=== PATIENT | male | born 1950 | race Caucasian/White ===

== ENCOUNTER 2024-01-30 19:51 | Inpatient (IN) | payer OTHER ==
[~2024-01-30] VITALS: Ht 172.7 cm; Wt 98.4 kg
[2024-01-30] MEDS: SODIUM CHLORIDE 0.9% 1,000 ML IV ONE (20:15)
[2024-01-30] MEDS ORDERED: PIPERACILLIN/TAZO 3.375G/50ML 50 ML IV ONE (20:15)
[2024-01-30] MEDS ORDERED: VANCOMYCIN 1G PREMIX 200 ML IV ONE (20:15)
[2024-01-30] MEDS: HALOPERIDOL LACTATE 5MG/ML VIAL IM ONE (22:00)
[2024-01-30 23:44] LABS: BASOPHILS % 0.3 % (0.0-2.0); EOSINOPHILS % 0.1 % (0.0-5.0); HEMATOCRIT. 40.7 % (42.0-52.0); LYMPHOCYTES % 8.6 % (20.0-50.0); MEAN CORPUSCULAR HEMOGLOBIN 26.3 pg (28.0-32.0); MEAN CORPUSCULAR HGB CONC 31.9 g/dL (31.0-37.0); MEAN CORPUSCULAR VOLUME 82.3 fL (80.0-94.0); MEAN PLATELET VOLUME 7.9 fl (7.4-10.4); PLATELET 484 x1000/uL (130-400); RED BLOOD CELL COUNT 4.94 mill/uL (4.7-6.1); RED CELL DISTRIBUTION WIDTH 17.5 % (11.6-14.6); WHITE BLOOD COUNT 22.2 x1000/uL (4.5-11.0)
[2024-01-30 23:54] LABS: CHLORIDE 104 mEq/L (98-107); POTASSIUM 3.4 mEq/L (3.5-5.1); SODIUM 143 mEq/L (136-145)
[2024-01-30 23:55] LABS: CALCIUM 9.1 mg/dL (8.7-10.4); CARBON DIOXIDE 30 mEq/L (21-32)
[2024-01-31] LABS: CREATININE 0.8 mg/dL (0.6-1.3); GLUCOSE 137 mg/dL (70-105); TROPONIN I HIGH SENSITIVITY 12 ng/L (3.0-53); UREA NITROGEN BLOOD 24 mg/dL (9-23)
[2024-01-31 00:01] LABS: ALANINE AMINOTRANSFERASE 38 IU/L (10-49)
[2024-01-31 00:02] LABS: ALBUMIN 3.4 g/dL (3.2-4.8); ASPARTATE AMINOTRANSFERASE 49 IU/L (<34); BILIRUBIN DIRECT 0.2 mg/dL (<=3.0); BILIRUBIN TOTAL 0.5 mg/dL (0.1-1.0); PROTEIN TOTAL 6.8 g/dL (6.0-8.3)
[2024-01-31] MEDS ORDERED: PIPERACILLIN/TAZO 3.375G/50ML 50 ML IV ONE (03:30)
[2024-01-31] MEDS ORDERED: DOCUSATE SODIUM 100MG CAPSULE PO PRN (03:45)
[2024-01-31] MEDS ORDERED: HYDRALAZINE 20MG/ML VIAL IV PRN (03:45)
[2024-01-31] MEDS ORDERED: MAGNESIUM/ALUMINUM HYDROXIDE/SIMETHICONE 30ML UDC PO PRN (03:45)
[2024-01-31] MEDS: PIPERACILLIN/TAZO 3.375G/50ML 50 ML IV NR (03:48)
[2024-01-31] MEDS ORDERED: VANCOMYCIN 1GM PMX (XELLIA) 200 ML IV NR (04:00)
[2024-01-31 06:23] LABS: CHLORIDE 106 mEq/L (98-107); POTASSIUM 3.3 mEq/L (3.5-5.1); SODIUM 145 mEq/L (136-145)
[2024-01-31 06:24] LABS: CALCIUM 8.8 mg/dL (8.7-10.4); CARBON DIOXIDE 31 mEq/L (21-32)
[2024-01-31 06:28] LABS: BASOPHILS % 0.1 % (0.0-2.0); HEMATOCRIT. 37.2 % (42.0-52.0); LYMPHOCYTES % 9.1 % (20.0-50.0); MEAN CORPUSCULAR HEMOGLOBIN 26.8 pg (28.0-32.0); MEAN CORPUSCULAR HGB CONC 32.4 g/dL (31.0-37.0); MEAN CORPUSCULAR VOLUME 82.6 fL (80.0-94.0); MEAN PLATELET VOLUME 8.1 fl (7.4-10.4); MONOCYTES % 4.3 % (2.0-8.0); NEUTROPHILS % 86.5 % (40.0-76.0); PLATELET 504 x1000/uL (130-400); RED CELL DISTRIBUTION WIDTH 17.3 % (11.6-14.6); WHITE BLOOD COUNT 25.5 x1000/uL (4.5-11.0)
[2024-01-31 06:29] LABS: CREATININE 0.7 mg/dL (0.6-1.3); GLUCOSE 143 mg/dL (70-105); TRIGLYCERIDE 105 mg/dL (0-150); UREA NITROGEN BLOOD 23 mg/dL (9-23)
[2024-01-31 06:30] LABS: LDL CHOLESTEROL 88 mg/dL (5-100)
[2024-01-31 06:31] LABS: CHOLESTEROL 127 mg/dL (<200); HDL CHOLESTEROL 22 mg/dL (>55); PHOSPHORUS 3.2 mg/dL (2.5-4.9)
[2024-01-31 06:32] LABS: INR 1.1; PARTIAL THROMBOPLASTIN TIME 29.1 sec (23.4-31.0); PROTHROMBIN TIME 12.6 sec (9.6-11.0)
[2024-01-31 06:33] LABS: T4 FREE 1.42 ng/dL (0.89-1.76)
[2024-01-31 06:34] LABS: THYROID STIMULATING HORMONE 3.05 uIU/mL (0.55-4.78)
[2024-01-31] MEDS: VANCOMYCIN 1.5GM PMX (XELLIA) 300 ML IV SCH (07:03)
[2024-01-31] MEDS: DEXT 5%/0.9% NACL 1,000 ML IV SCH (09:15)
[2024-01-31] MEDS: PANTOPRAZOLE SODIUM 40 MG/VIAL IV SCH (09:36)
[2024-01-31] MEDS: KCL 20MEQ/100ML PREMIX 100 ML IV NR (14:07)
[2024-01-31] MEDS: PIPERACILLIN/TAZO 3.375G/50ML 50 ML IV SCH (15:51)
[2024-01-31 20:00] VITALS: BP 159/87; PULSE 93; RESP 20; TEMP 36.55848; O2SAT 94
[2024-01-31 20:17] LABS: HEMATOCRIT 39.3 % (42.0-52.0); HEMOGLOBIN 12.2 g/dL (14.0-18.0); MEAN CORPUSCULAR HEMOGLOBIN 25.8 pg (28.0-32.0); MEAN CORPUSCULAR HGB CONC 31.1 g/dL (31.0-37.0); MEAN CORPUSCULAR VOLUME 83.1 fL (80.0-94.0); PLATELET 480 x1000/uL (130-400); RED BLOOD CELL COUNT 4.73 mill/uL (4.7-6.1); RED CELL DISTRIBUTION WIDTH 17.4 % (11.6-14.6); WHITE BLOOD COUNT 23.1 x1000/uL (4.5-11.0)
[2024-01-31 20:23] LABS: CARBON DIOXIDE 27 mEq/L (21-32); CHLORIDE 107 mEq/L (98-107); POTASSIUM 3.4 mEq/L (3.5-5.1); SODIUM 143 mEq/L (136-145)
[2024-01-31 20:24] LABS: CALCIUM 8.9 mg/dL (8.7-10.4)
[2024-01-31 20:29] LABS: CREATININE 0.7 mg/dL (0.6-1.3); GLUCOSE 143 mg/dL (70-105)
[2024-01-31 20:30] LABS: UREA NITROGEN BLOOD 22 mg/dL (9-23)
[2024-01-31 20:32] LABS: PHOSPHORUS 3.2 mg/dL (2.5-4.9)
[2024-01-31 20:47] VITALS: BP 160/82; PULSE 92; RESP 21; TEMP 36.14
[2024-01-31] MEDS: VANCOMYCIN 750MG PMX (XELLIA) 150 ML IV SCH (21:55)
[2024-01-31 22:00] VITALS: BP 151/63; PULSE 94; RESP 24; O2SAT 91
[2024-01-31 23:50] VITALS: BP 141/64; PULSE 89; RESP 22; TEMP 37.16964; O2SAT 94
[2024-02-01] VITALS (12 sets, daily range): BP systolic 131–154; BP diastolic 60–92; PULSE 81–96; RESP 18–23; TEMP 36.61404–37.11408; O2SAT 92–99
[2024-02-01] MEDS: IPRATROPIUM/ALBUTEROL 0.5-3(2.5)MG/3ML NEB HHN PRN (02:56)
[2024-02-01 15:11] LABS: CLARITY URINE CLEAR (CLEAR); COLOR URINE DARK YELLOW (YELLOW); GLUCOSE URINE NEGATIVE (NEGATIVE); KETONES URINE TRACE (NEGATIVE); LEUKOCYTE ESTERASE URINE NEGATIVE (NEGATIVE); NITRITE URINE NEGATIVE (NEGATIVE); OCCULT BLOOD URINE NEGATIVE (NEGATIVE); PH URINE 5.5 (4.5-8.0); PROTEIN URINE 1+ (NEGATIVE); SPECIFIC GRAVITY URINE 1.036 (1.005-1.030); UROBILINOGEN URINE 0.2 E.U./dL (0.2-1.0)
[2024-02-01 16:15] LABS: BACTERIA URINE 2+; CALCIUM OXALATE CRYSTALS URINE 1+ /lpf; RBC URINE 0-2 /hpf (0-2); SQUAMOUS EPITHELIAL CELL URINE FEW /lpf (RARE/1+); WBC URINE 0-2 /hpf (0-2)
[2024-02-01] MEDS: SODIUM HYPOCHLORITE 0.125% 473ML SOLUTION TOP SCH (21:20)
[2024-02-02] VITALS (12 sets, daily range): BP systolic 122–159; BP diastolic 63–81; PULSE 81–101; RESP 11–23; TEMP 34.89168–37.00296; O2SAT 90–97
[2024-02-02 05:10] LABS: HEMATOCRIT 36.8 % (42.0-52.0); HEMOGLOBIN 11.5 g/dL (14.0-18.0); MEAN CORPUSCULAR HEMOGLOBIN 26.3 pg (28.0-32.0); MEAN CORPUSCULAR HGB CONC 31.3 g/dL (31.0-37.0); MEAN CORPUSCULAR VOLUME 83.8 fL (80.0-94.0); PLATELET 464 x1000/uL (130-400); RED BLOOD CELL COUNT 4.39 mill/uL (4.7-6.1); RED CELL DISTRIBUTION WIDTH 17.7 % (11.6-14.6); WHITE BLOOD COUNT 19.3 x1000/uL (4.5-11.0)
[2024-02-02 05:21] LABS: CARBON DIOXIDE 28 mEq/L (21-32); CHLORIDE 111 mEq/L (98-107); POTASSIUM 3.1 mEq/L (3.5-5.1); SODIUM 147 mEq/L (136-145)
[2024-02-02 05:22] LABS: CALCIUM 8.8 mg/dL (8.7-10.4)
[2024-02-02 05:27] LABS: CREATININE 0.6 mg/dL (0.6-1.3); GLUCOSE 145 mg/dL (70-105); UREA NITROGEN BLOOD 19 mg/dL (9-23)
[2024-02-02 05:29] LABS: PHOSPHORUS 2.6 mg/dL (2.5-4.9)
[2024-02-02] MEDS: SODIUM CHLORIDE 0.9% 1,000 ML IV SCH (11:11)
[2024-02-02] MEDS: TAMSULOSIN HCL 0.4MG SR CAPSULE PO SCH (11:12)
[2024-02-02] MEDS: ASPIRIN 81MG EC TABLET PO SCH (17:32)
[2024-02-02] MEDS: ENOXAPARIN 40MG/0.4ML SYR SUBCUT SCH (17:32)
[2024-02-03] VITALS (12 sets, daily range): BP systolic 95–162; BP diastolic 44–75; PULSE 86–105; RESP 16–25; TEMP 36.28068–37.61412; O2SAT 92–94
[2024-02-03] MEDS: VANCOMYCIN 1GM PMX (XELLIA) 200 ML IV SCH (05:10)
[2024-02-03] MEDS: FAMOTIDINE 20MG/2ML VIAL IV SCH (08:12)
[2024-02-03] MEDS: LOSARTAN 25 MG TABLET PO SCH (09:00)
[2024-02-03 14:11] LABS: HEMATOCRIT 38.8 % (42.0-52.0); HEMOGLOBIN 11.6 g/dL (14.0-18.0); MEAN CORPUSCULAR HEMOGLOBIN 25.5 pg (28.0-32.0); MEAN CORPUSCULAR HGB CONC 29.9 g/dL (31.0-37.0); MEAN CORPUSCULAR VOLUME 85.2 fL (80.0-94.0); PLATELET 459 x1000/uL (130-400); RED BLOOD CELL COUNT 4.55 mill/uL (4.7-6.1); WHITE BLOOD COUNT 17.7 x1000/uL (4.5-11.0)
[2024-02-03 14:46] LABS: CHLORIDE 113 mEq/L (98-107); POTASSIUM 2.9 mEq/L (3.5-5.1); SODIUM 147 mEq/L (136-145)
[2024-02-03 14:47] LABS: CALCIUM 8.8 mg/dL (8.7-10.4); CARBON DIOXIDE 27 mEq/L (21-32)
[2024-02-03 14:52] LABS: CREATININE 0.5 mg/dL (0.6-1.3); GLUCOSE 190 mg/dL (70-105); UREA NITROGEN BLOOD 14 mg/dL (9-23)
[2024-02-03] MEDS: ACETAMINOPHEN 325MG TABLET PO PRN (15:09)
[2024-02-03] MEDS: SODIUM CHLORIDE 0.45% 1,000 ML IV SCH (19:12)
[2024-02-03] MEDS: KCL 20MEQ/100ML PREMIX 100 ML IV SCH (23:06)
[2024-02-04] VITALS (12 sets, daily range): BP systolic 115–153; BP diastolic 59–83; PULSE 86–98; RESP 13–25; TEMP 36.3918–37.00296; O2SAT 92–96
[2024-02-04 06:06] LABS: CHLORIDE 111 mEq/L (98-107); POTASSIUM 2.9 mEq/L (3.5-5.1); SODIUM 147 mEq/L (136-145)
[2024-02-04 06:09] LABS: CALCIUM 8.7 mg/dL (8.7-10.4); CARBON DIOXIDE 28 mEq/L (21-32)
[2024-02-04 06:14] LABS: CREATININE 0.5 mg/dL (0.6-1.3); GLUCOSE 130 mg/dL (70-105); UREA NITROGEN BLOOD 13 mg/dL (9-23)
[2024-02-04 06:16] LABS: ALANINE AMINOTRANSFERASE 53 IU/L (10-49); ALBUMIN 2.8 g/dL (3.2-4.8); ASPARTATE AMINOTRANSFERASE 28 IU/L (<34)
[2024-02-04 06:17] LABS: BILIRUBIN TOTAL 0.5 mg/dL (0.1-1.0); PROTEIN TOTAL 5.9 g/dL (6.0-8.3)
[2024-02-04 06:25] LABS: PHOSPHORUS 2.6 mg/dL (2.5-4.9)
[2024-02-04 06:54] LABS: HEMATOCRIT 35.1 % (42.0-52.0); HEMOGLOBIN 10.9 g/dL (14.0-18.0); MEAN CORPUSCULAR HEMOGLOBIN 26.2 pg (28.0-32.0); MEAN CORPUSCULAR HGB CONC 31.2 g/dL (31.0-37.0); MEAN CORPUSCULAR VOLUME 84.1 fL (80.0-94.0); PLATELET 454 x1000/uL (130-400); RED BLOOD CELL COUNT 4.17 mill/uL (4.7-6.1); RED CELL DISTRIBUTION WIDTH 17.7 % (11.6-14.6); WHITE BLOOD COUNT 14.7 x1000/uL (4.5-11.0)
[2024-02-04] MEDS: POTASSIUM CHLORIDE 20MEQ TABLET SR PO NR (10:30)
[2024-02-04] MEDS: KETOROLAC 30MG/ML VIAL IV PRN (18:40)
[2024-02-05] VITALS (13 sets, daily range): BP systolic 106–147; BP diastolic 50–79; PULSE 89–104; RESP 12–26; TEMP 36.61404–37.11408; O2SAT 92–98
[2024-02-05 07:24] LABS: EOSINOPHILS % 0.5 % (0.0-5.0); HEMATOCRIT. 33.4 % (42.0-52.0); HEMOGLOBIN. 10.4 g/dL (14.0-18.0); LYMPHOCYTES % 9.7 % (20.0-50.0); MEAN CORPUSCULAR HEMOGLOBIN 25.7 pg (28.0-32.0); MEAN CORPUSCULAR VOLUME 82.9 fL (80.0-94.0); MEAN PLATELET VOLUME 8.5 fl (7.4-10.4); NEUTROPHILS % 85.8 % (40.0-76.0); PLATELET 446 x1000/uL (130-400); RED BLOOD CELL COUNT 4.03 mill/uL (4.7-6.1); RED CELL DISTRIBUTION WIDTH 17.8 % (11.6-14.6); WHITE BLOOD COUNT 17.9 x1000/uL (4.5-11.0)
[2024-02-05 07:32] LABS: CHLORIDE 111 mEq/L (98-107); SODIUM 146 mEq/L (136-145)
[2024-02-05 07:33] LABS: CARBON DIOXIDE 27 mEq/L (21-32)
[2024-02-05 07:34] LABS: CALCIUM 8.3 mg/dL (8.7-10.4)
[2024-02-05 07:38] LABS: CREATININE 0.5 mg/dL (0.6-1.3); GLUCOSE 126 mg/dL (70-105)
[2024-02-05 07:39] LABS: UREA NITROGEN BLOOD 16 mg/dL (9-23)
[2024-02-05 07:41] LABS: PHOSPHORUS 2.5 mg/dL (2.5-4.9)
[2024-02-05] MEDS ORDERED: LIDOCAINE HCL/EPINEPHRINE 1%-EPI 1:100,000 50ML VIAL INFIL NR (09:30)
[2024-02-05] MEDS ORDERED: LIDOCAINE HCL/EPINEPHRINE 1%-EPI 1:100,000 20ML VIAL INFIL NR (09:45)
[2024-02-05] MEDS ORDERED: SILVER NITRATE APPLICATOR STICK TOP NR (10:00)
[2024-02-05] MEDS ORDERED: CEFEPIME 2GM IN DEXT 5% 100ML IV SCH (15:00)
[2024-02-05] MEDS: CEFEPIME 2GM/100ML 100 ML IV SCH (17:24)
[2024-02-06] VITALS (7 sets, daily range): BP systolic 108–151; BP diastolic 51–89; PULSE 82–101; RESP 11–26; TEMP 36.16956–38.0586; O2SAT 94–96
[2024-02-06 03:38] LABS: BASOPHILS % 0.5 % (0.0-2.0); CARBON DIOXIDE 28 mEq/L (21-32); CHLORIDE 108 mEq/L (98-107); EOSINOPHILS % 1.9 % (0.0-5.0); HEMATOCRIT. 31.3 % (42.0-52.0); HEMOGLOBIN. 9.8 g/dL (14.0-18.0); LYMPHOCYTES % 14.6 % (20.0-50.0); MEAN CORPUSCULAR HEMOGLOBIN 25.6 pg (28.0-32.0); MEAN CORPUSCULAR HGB CONC 31.3 g/dL (31.0-37.0); MEAN CORPUSCULAR VOLUME 81.9 fL (80.0-94.0); MEAN PLATELET VOLUME 8.2 fl (7.4-10.4); PLATELET 432 x1000/uL (130-400); RED BLOOD CELL COUNT 3.82 mill/uL (4.7-6.1); RED CELL DISTRIBUTION WIDTH 17.3 % (11.6-14.6); SODIUM 141 mEq/L (136-145); WHITE BLOOD COUNT 12.7 x1000/uL (4.5-11.0)
[2024-02-06 03:44] LABS: CREATININE 0.5 mg/dL (0.6-1.3); GLUCOSE 130 mg/dL (70-105); UREA NITROGEN BLOOD 17 mg/dL (9-23)
[2024-02-06 03:46] LABS: PHOSPHORUS 2.3 mg/dL (2.5-4.9)
[2024-02-06] MEDS: ASPIRIN 81MG TABLET PO SCH (09:00)
[2024-02-06] MEDS: POTASSIUM PHOSPHATE 20 MMOL in DEXT 5% WATER 243.3333 ML IV NR (14:00)
[2024-02-06] MEDS: VANCOMYCIN 750MG/150ML (BAXTER) IV SCH (18:00)
[2024-02-06] MEDS ORDERED: KETOROLAC 15MG/ML VIAL IV PRN (19:16)
[2024-02-07] VITALS: BP 134/74; PULSE 97; RESP 15; TEMP 37.61412; O2SAT 99
[2024-02-07 04:00] VITALS: BP 132/63; PULSE 89; RESP 20; TEMP 36.6696; O2SAT 95
[2024-02-07 05:41] LABS: BASOPHILS % 0.4 % (0.0-2.0); HEMATOCRIT. 30.3 % (42.0-52.0); HEMOGLOBIN. 9.4 g/dL (14.0-18.0); LYMPHOCYTES % 17.3 % (20.0-50.0); MEAN CORPUSCULAR HEMOGLOBIN 25.4 pg (28.0-32.0); MEAN CORPUSCULAR HGB CONC 31.1 g/dL (31.0-37.0); MEAN CORPUSCULAR VOLUME 81.6 fL (80.0-94.0); MEAN PLATELET VOLUME 8.5 fl (7.4-10.4); NEUTROPHILS % 74.3 % (40.0-76.0); PLATELET 465 x1000/uL (130-400); RED BLOOD CELL COUNT 3.71 mill/uL (4.7-6.1); RED CELL DISTRIBUTION WIDTH 17.3 % (11.6-14.6); WHITE BLOOD COUNT 11.9 x1000/uL (4.5-11.0)
[2024-02-07 05:47] LABS: CHLORIDE 107 mEq/L (98-107); SODIUM 143 mEq/L (136-145)
[2024-02-07 05:48] LABS: CALCIUM 8.2 mg/dL (8.7-10.4); CARBON DIOXIDE 29 mEq/L (21-32)
[2024-02-07 05:53] LABS: CREATININE 0.4 mg/dL (0.6-1.3); GLUCOSE 105 mg/dL (70-105); UREA NITROGEN BLOOD 14 mg/dL (9-23)
[2024-02-07 05:55] LABS: PHOSPHORUS 2.8 mg/dL (2.5-4.9)
[2024-02-07 08:00] VITALS: BP 117/90; PULSE 80; RESP 14; TEMP 37.2252; O2SAT 95
[2024-02-07] MEDS ORDERED: LIDOCAINE HCL 1% 10 MG/ML 10ML VIAL ONE (09:17)
[2024-02-07] MEDS: POTASSIUM CHLORIDE 20MEQ/PACKET PO NR (09:34)
[2024-02-07 12:00] VITALS: BP 150/70; PULSE 81; RESP 22; TEMP 36.44736; O2SAT 91
[2024-02-07] MEDS ORDERED: MORPHINE SULFATE 2 MG/ML INJ (NOT FOR IM USE) IV NR (13:30)
[2024-02-07 16:00] VITALS: BP 143/69; PULSE 79; RESP 15; TEMP 37.39188; O2SAT 94
[2024-02-07 20:00] VITALS: BP 144/77; PULSE 94; RESP 20; TEMP 37.11408; O2SAT 97
[2024-02-08] VITALS: PULSE 86; RESP 20; TEMP 37.39188; O2SAT 98
[2024-02-08 04:00] VITALS: BP 183/106; PULSE 116; RESP 15; TEMP 36.78072; O2SAT 99
[2024-02-08 08:00] VITALS: BP 136/74; PULSE 91; RESP 21; TEMP 37.11408; O2SAT 95
[2024-02-08 11:27] LABS: HEMATOCRIT 31.2 % (42.0-52.0); HEMOGLOBIN 9.6 g/dL (14.0-18.0); MEAN CORPUSCULAR HEMOGLOBIN 25.4 pg (28.0-32.0); MEAN CORPUSCULAR HGB CONC 30.9 g/dL (31.0-37.0); MEAN CORPUSCULAR VOLUME 82.1 fL (80.0-94.0); PLATELET 498 x1000/uL (130-400); RED CELL DISTRIBUTION WIDTH 17.5 % (11.6-14.6); WHITE BLOOD COUNT 12.7 x1000/uL (4.5-11.0)
[2024-02-08 11:38] LABS: CHLORIDE 104 mEq/L (98-107); SODIUM 137 mEq/L (136-145)
[2024-02-08 11:39] LABS: CALCIUM 8.3 mg/dL (8.7-10.4); CARBON DIOXIDE 30 mEq/L (21-32)
[2024-02-08 11:44] LABS: CREATININE 0.4 mg/dL (0.6-1.3); GLUCOSE 116 mg/dL (70-105); UREA NITROGEN BLOOD 11 mg/dL (9-23)
[2024-02-08 12:00] VITALS: BP 152/76; PULSE 89; RESP 19; TEMP 36.6696; O2SAT 96
[2024-02-08 16:00] VITALS: BP 127/63; PULSE 82; RESP 22; TEMP 37.2252; O2SAT 96
[2024-02-08] MEDS: MORPHINE SULFATE 2 MG/ML INJ (NOT FOR IM USE) IV PRN (16:01)
[2024-02-08] MEDS ORDERED: NALOXONE HCL 0.4MG/ML VIAL IV PRN (17:00)
[2024-02-08 20:00] VITALS: BP 157/69; PULSE 86; RESP 18; TEMP 36.50292; O2SAT 96
[2024-02-09] VITALS: BP 133/70; PULSE 96; RESP 17; TEMP 36.44736; O2SAT 96
[2024-02-09 03:39] LABS: HEMATOCRIT 31.6 % (42.0-52.0); HEMOGLOBIN 10.1 g/dL (14.0-18.0); MEAN CORPUSCULAR HEMOGLOBIN 25.8 pg (28.0-32.0); MEAN CORPUSCULAR HGB CONC 31.9 g/dL (31.0-37.0); PLATELET 483 x1000/uL (130-400); RED CELL DISTRIBUTION WIDTH 17.6 % (11.6-14.6); WHITE BLOOD COUNT 11.3 x1000/uL (4.5-11.0)
[2024-02-09 03:52] LABS: CALCIUM 8.4 mg/dL (8.7-10.4); CARBON DIOXIDE 31 mEq/L (21-32); CHLORIDE 104 mEq/L (98-107); POTASSIUM 3.2 mEq/L (3.5-5.1); SODIUM 140 mEq/L (136-145)
[2024-02-09 03:58] LABS: CREATININE 0.4 mg/dL (0.6-1.3); GLUCOSE 111 mg/dL (70-105); UREA NITROGEN BLOOD 13 mg/dL (9-23)
[2024-02-09 04:00] VITALS: BP 155/86; PULSE 92; RESP 17; TEMP 36.72516; O2SAT 97
[2024-02-09] MEDS: LIDOCAINE HCL/EPINEPHRINE 1%-EPI 1:100,000 20ML VIAL INFIL ONE (07:15)
[2024-02-09 12:00] VITALS: BP 143/67; PULSE 106; RESP 19; TEMP 36.61404; O2SAT 96
[2024-02-09] MEDS ORDERED: KCL 20MEQ/100ML PREMIX 100 ML IV ONE (14:15)
[2024-02-09] MEDS: KCL 10MEQ/50ML PREMIX 50 ML IV SCH (15:57)
[2024-02-09 16:00] VITALS: BP 142/71; PULSE 96; RESP 20; TEMP 37.05852; O2SAT 95
[2024-02-09] MEDS ORDERED: ASCORBIC ACID 500 MG TABLET PO NR (18:45)
[2024-02-09 20:00] VITALS: BP 99/63; PULSE 96; RESP 19; TEMP 37.00296; O2SAT 95
[2024-02-10] VITALS: BP 141/63; PULSE 82; RESP 18; TEMP 37.11408; O2SAT 96
[2024-02-10 04:00] VITALS: BP 156/70; PULSE 94; RESP 20; TEMP 36.61404; O2SAT 98
[2024-02-10 08:00] VITALS: BP 99/63; PULSE 96; RESP 19; TEMP 37.00296; O2SAT 95
[2024-02-10] MEDS: ZINC SULFATE 220 MG ( 50 ) CAPSULE PO SCH (09:00)
[2024-02-10] MEDS: MULTIVITAMINS,THER W-MINERALS TABLET PO SCH (09:14)
[2024-02-10] MEDS: DOCUSATE SODIUM SUGAR FREE 100MG/10ML UDC PO PRN (09:14)
[2024-02-10] MEDS: GUAIFENESIN 200MG/10ML SUGAR FREE UDC PO PRN (09:15)
[2024-02-10] MEDS: ONDANSETRON HCL 4MG/2ML INJ IV PRN (09:30)
[2024-02-10 11:08] LABS: HEMATOCRIT 32.8 % (42.0-52.0); HEMOGLOBIN 10.2 g/dL (14.0-18.0); MEAN CORPUSCULAR HEMOGLOBIN 25.4 pg (28.0-32.0); MEAN CORPUSCULAR HGB CONC 31.3 g/dL (31.0-37.0); MEAN CORPUSCULAR VOLUME 81.2 fL (80.0-94.0); PLATELET 538 x1000/uL (130-400); RED BLOOD CELL COUNT 4.03 mill/uL (4.7-6.1)
[2024-02-10 11:24] LABS: CARBON DIOXIDE 32 mEq/L (21-32); CHLORIDE 100 mEq/L (98-107); POTASSIUM 3.2 mEq/L (3.5-5.1); SODIUM 138 mEq/L (136-145)
[2024-02-10 11:25] LABS: CALCIUM 8.3 mg/dL (8.7-10.4)
[2024-02-10 11:30] LABS: CREATININE 0.4 mg/dL (0.6-1.3); GLUCOSE 149 mg/dL (70-105); UREA NITROGEN BLOOD 9 mg/dL (9-23)
[2024-02-10 11:32] LABS: PHOSPHORUS 2.5 mg/dL (2.5-4.9)
[2024-02-10 12:00] VITALS: BP 104/70; PULSE 96; RESP 19; TEMP 36.6696; O2SAT 95
[2024-02-10] MEDS: POTASSIUM CHLORIDE 20MEQ/PACKET PO NR (14:45)
[2024-02-10] MEDS ORDERED: LINEZOLID 600 MG PREMIX 300 ML IV SCH (16:00)
[2024-02-10] MEDS: HYDROMORPHONE HCL/PF 2MG/ML INJ IV PRN (16:59)
[2024-02-10] MEDS: DAPTOMYCIN 750 MG in SODIUM CHLORIDE 0.9% 50 ML IV SCH (18:31)
[2024-02-10 19:58] LABS: CREATINE KINASE 23 IU/L (46-171)
[2024-02-10 20:00] VITALS: BP 122/73; PULSE 103; RESP 18; TEMP 37.00296; O2SAT 97
[2024-02-11] VITALS: BP 116/57; PULSE 92; RESP 18; TEMP 36.89184; O2SAT 95
[2024-02-11 04:00] VITALS: BP 126/58; PULSE 85; RESP 18; TEMP 36.50292; O2SAT 95
[2024-02-11] MEDS: MORPHINE SULFATE 2 MG/ML INJ (NOT FOR IM USE) IV PRN (05:02)
[2024-02-11] MEDS: HYDROCODONE/ACETAMINOPHEN 7.5/325MG TABLET PO SCH (06:42)
[2024-02-11 08:00] VITALS: BP 170/88; PULSE 90; RESP 20; TEMP 36.22512; O2SAT 96
[2024-02-11 09:48] LABS: BASOPHILS % 0.5 % (0.0-2.0); HEMATOCRIT. 31.1 % (42.0-52.0); HEMOGLOBIN. 9.7 g/dL (14.0-18.0); LYMPHOCYTES % 19.2 % (20.0-50.0); MEAN CORPUSCULAR HEMOGLOBIN 25.6 pg (28.0-32.0); MEAN CORPUSCULAR HGB CONC 31.4 g/dL (31.0-37.0); MEAN CORPUSCULAR VOLUME 81.6 fL (80.0-94.0); MEAN PLATELET VOLUME 7.7 fl (7.4-10.4); MONOCYTES % 3.7 % (2.0-8.0); NEUTROPHILS % 75.6 % (40.0-76.0); PLATELET 561 x1000/uL (130-400); RED BLOOD CELL COUNT 3.81 mill/uL (4.7-6.1); RED CELL DISTRIBUTION WIDTH 17.3 % (11.6-14.6); WHITE BLOOD COUNT 12.8 x1000/uL (4.5-11.0)
[2024-02-11 09:50] LABS: CARBON DIOXIDE 35 mEq/L (21-32); CHLORIDE 99 mEq/L (98-107); POTASSIUM 3.6 mEq/L (3.5-5.1); SODIUM 138 mEq/L (136-145)
[2024-02-11 09:51] LABS: CALCIUM 8.5 mg/dL (8.7-10.4)
[2024-02-11 09:56] LABS: CREATININE 0.4 mg/dL (0.6-1.3); GLUCOSE 112 mg/dL (70-105); UREA NITROGEN BLOOD 10 mg/dL (9-23)
[2024-02-11 09:58] LABS: PHOSPHORUS 2.9 mg/dL (2.5-4.9)
[2024-02-11 12:00] VITALS: BP 144/66; PULSE 95; RESP 20; TEMP 36.114; O2SAT 100
[2024-02-11 16:00] VITALS: BP 129/65; PULSE 96; RESP 20; TEMP 36.114; O2SAT 100
[2024-02-11] MEDS: ASCORBIC ACID 500 MG TABLET PO SCH (17:24)
[2024-02-11 20:00] VITALS: BP 124/68; PULSE 101; RESP 18; TEMP 36.3918; O2SAT 98
[2024-02-11] MEDS: POLYMYXIN B SULFATE/TMP 10ML BOTTLE BOTHEYE SCH (21:25)
[2024-02-12] VITALS (7 sets, daily range): BP systolic 92–180; BP diastolic 68–93; PULSE 65–103; RESP 18–20; TEMP 36.114–36.78072; O2SAT 95–99
[2024-02-12] MEDS: MORPHINE SULFATE 2 MG/ML INJ (NOT FOR IM USE) IV PRN (04:44)
[2024-02-12 08:16] LABS: CHLORIDE 99 mEq/L (98-107); POTASSIUM 3.4 mEq/L (3.5-5.1); SODIUM 138 mEq/L (136-145)
[2024-02-12 08:17] LABS: CARBON DIOXIDE 34 mEq/L (21-32)
[2024-02-12 08:18] LABS: CALCIUM 8.4 mg/dL (8.7-10.4)
[2024-02-12 08:22] LABS: CREATININE 0.4 mg/dL (0.6-1.3)
[2024-02-12 08:23] LABS: GLUCOSE 122 mg/dL (70-105); UREA NITROGEN BLOOD 11 mg/dL (9-23)
[2024-02-12 08:34] LABS: HEMATOCRIT 28.1 % (42.0-52.0); MEAN CORPUSCULAR HEMOGLOBIN 25.9 pg (28.0-32.0); MEAN CORPUSCULAR HGB CONC 32.1 g/dL (31.0-37.0); MEAN CORPUSCULAR VOLUME 80.6 fL (80.0-94.0); PLATELET 514 x1000/uL (130-400); RED BLOOD CELL COUNT 3.48 mill/uL (4.7-6.1); RED CELL DISTRIBUTION WIDTH 17.1 % (11.6-14.6); WHITE BLOOD COUNT 11.3 x1000/uL (4.5-11.0)
[2024-02-13] VITALS: BP 148/72; PULSE 98; RESP 19; TEMP 36.55848; O2SAT 96
[2024-02-13 04:00] VITALS: BP 140/70; PULSE 94; RESP 19; TEMP 36.50292; O2SAT 97
[2024-02-13 07:24] LABS: CHLORIDE 99 mEq/L (98-107); POTASSIUM 3.3 mEq/L (3.5-5.1); SODIUM 137 mEq/L (136-145)
[2024-02-13 07:25] LABS: CALCIUM 8.7 mg/dL (8.7-10.4); CARBON DIOXIDE 33 mEq/L (21-32)
[2024-02-13 07:30] LABS: CREATININE 0.5 mg/dL (0.6-1.3); GLUCOSE 97 mg/dL (70-105); UREA NITROGEN BLOOD 10 mg/dL (9-23)
[2024-02-13 08:00] VITALS: BP 150/72; PULSE 88; RESP 20; TEMP 36.22512; O2SAT 100
[2024-02-13 08:01] LABS: HEMATOCRIT 28.4 % (42.0-52.0); HEMOGLOBIN 9.4 g/dL (14.0-18.0); MEAN CORPUSCULAR HEMOGLOBIN 26.5 pg (28.0-32.0); MEAN CORPUSCULAR HGB CONC 33.1 g/dL (31.0-37.0); PLATELET 632 x1000/uL (130-400); RED BLOOD CELL COUNT 3.55 mill/uL (4.7-6.1); RED CELL DISTRIBUTION WIDTH 17.3 % (11.6-14.6); WHITE BLOOD COUNT 10.5 x1000/uL (4.5-11.0)
[2024-02-13 09:23] LABS: FOLIC ACID (FOLATE) SERUM 8.87 ng/mL (>5.38); VITAMIN B12 SERUM 652 pg/mL (211-911)
[2024-02-13 12:00] VITALS: PULSE 89; RESP 19; TEMP 35.33616; O2SAT 95
[2024-02-13] MEDS: POTASSIUM CHLORIDE 20MEQ/PACKET PO NR (13:46)
[2024-02-13 16:00] VITALS: BP 136/82; PULSE 88; RESP 18; TEMP 36.00288; O2SAT 98
[2024-02-13 20:00] VITALS: BP 117/63; PULSE 107; RESP 18; TEMP 37.503; O2SAT 95
[2024-02-14] VITALS: BP 143/65; PULSE 98; RESP 16; TEMP 36.61404; O2SAT 97
[2024-02-14 04:00] VITALS: BP 149/67; PULSE 94; RESP 17; TEMP 36.89184; O2SAT 95
[2024-02-14 07:55] LABS: HEMATOCRIT 29.1 % (42.0-52.0); HEMOGLOBIN 9.5 g/dL (14.0-18.0); MEAN CORPUSCULAR HEMOGLOBIN 26.2 pg (28.0-32.0); MEAN CORPUSCULAR HGB CONC 32.5 g/dL (31.0-37.0); MEAN CORPUSCULAR VOLUME 80.5 fL (80.0-94.0); PLATELET 634 x1000/uL (130-400); RED BLOOD CELL COUNT 3.61 mill/uL (4.7-6.1); RED CELL DISTRIBUTION WIDTH 17.1 % (11.6-14.6); WHITE BLOOD COUNT 12.3 x1000/uL (4.5-11.0)
[2024-02-14 07:57] LABS: CHLORIDE 99 mEq/L (98-107); POTASSIUM 3.8 mEq/L (3.5-5.1); SODIUM 136 mEq/L (136-145)
[2024-02-14 07:58] LABS: CALCIUM 8.7 mg/dL (8.7-10.4); CARBON DIOXIDE 32 mEq/L (21-32)
[2024-02-14 08:00] VITALS: BP 138/79; PULSE 88; RESP 20; TEMP 35.72508; O2SAT 95
[2024-02-14 08:03] LABS: CREATININE 0.4 mg/dL (0.6-1.3); GLUCOSE 101 mg/dL (70-105); UREA NITROGEN BLOOD 10 mg/dL (9-23)
[2024-02-14 12:00] VITALS: BP 139/79; PULSE 95; RESP 19; TEMP 36.22512; O2SAT 96
[2024-02-14 16:00] VITALS: BP 144/77; PULSE 94; RESP 19; TEMP 36.44736; O2SAT 99
[2024-02-14 20:00] VITALS: BP 131/70; PULSE 64; RESP 19; TEMP 36.28068; O2SAT 97
[2024-02-15] VITALS: BP 164/84; PULSE 91; RESP 20; TEMP 36.78072; O2SAT 97
[2024-02-15] MEDS: CLONIDINE 0.1MG TABLET PO PRN (01:12)
[2024-02-15 04:00] VITALS: BP 118/53; PULSE 123; RESP 20; TEMP 36.55848; O2SAT 94
[2024-02-15 08:00] VITALS: BP 133/63; PULSE 111; RESP 18; TEMP 36.78072; O2SAT 98
[2024-02-15 08:57] LABS: HEMATOCRIT 28.8 % (42.0-52.0); HEMOGLOBIN 9.3 g/dL (14.0-18.0); MEAN CORPUSCULAR HEMOGLOBIN 25.8 pg (28.0-32.0); MEAN CORPUSCULAR HGB CONC 32.4 g/dL (31.0-37.0); MEAN CORPUSCULAR VOLUME 79.7 fL (80.0-94.0); PLATELET 604 x1000/uL (130-400); RED BLOOD CELL COUNT 3.61 mill/uL (4.7-6.1); WHITE BLOOD COUNT 22.3 x1000/uL (4.5-11.0)
[2024-02-15 08:59] LABS: CHLORIDE 100 mEq/L (98-107); POTASSIUM 3.4 mEq/L (3.5-5.1); SODIUM 137 mEq/L (136-145)
[2024-02-15 09:00] LABS: CALCIUM 8.6 mg/dL (8.7-10.4); CARBON DIOXIDE 31 mEq/L (21-32)
[2024-02-15 09:05] LABS: CREATININE 0.5 mg/dL (0.6-1.3); GLUCOSE 117 mg/dL (70-105); UREA NITROGEN BLOOD 12 mg/dL (9-23)
[2024-02-15 12:00] VITALS: BP 119/65; PULSE 98; RESP 18; TEMP 36.55848; O2SAT 98
[2024-02-15] MEDS: ERGOCALCIFEROL 50000UNITS CAPSULE PO SCH (14:30)
[2024-02-15 16:00] VITALS: BP 134/66; PULSE 100; RESP 17; TEMP 36.50292; O2SAT 98
[2024-02-15] MEDS: POTASSIUM CHLORIDE 20 MEQ in DEXT 5% WATER 90 ML IV NR (18:04)
[2024-02-15] MEDS: DAPTOMYCIN 700 MG in SODIUM CHLORIDE 0.9% 50 ML IV SCH (18:04)
[2024-02-15 20:00] VITALS: BP 148/73; PULSE 88; RESP 18; TEMP 36.55848; O2SAT 97
[2024-02-16] VITALS: BP 142/69; PULSE 90; RESP 20; TEMP 36.50292; O2SAT 97
[2024-02-16 04:00] VITALS: BP 137/80; PULSE 86; RESP 20; TEMP 36.78072; O2SAT 97
[2024-02-16 07:13] LABS: CHLORIDE 101 mEq/L (98-107); POTASSIUM 3.6 mEq/L (3.5-5.1); SODIUM 137 mEq/L (136-145)
[2024-02-16 07:14] LABS: CALCIUM 8.7 mg/dL (8.7-10.4); CARBON DIOXIDE 32 mEq/L (21-32)
[2024-02-16 07:19] LABS: CREATININE 0.5 mg/dL (0.6-1.3); GLUCOSE 120 mg/dL (70-105); UREA NITROGEN BLOOD 16 mg/dL (9-23)
[2024-02-16 07:21] LABS: PHOSPHORUS 3.1 mg/dL (2.5-4.9)
[2024-02-16 08:00] VITALS: BP 90/57; PULSE 126; RESP 20; TEMP 36.6696; O2SAT 99
[2024-02-16 08:22] LABS: HEMATOCRIT 29.1 % (42.0-52.0); MEAN CORPUSCULAR HGB CONC 31.1 g/dL (31.0-37.0); MEAN CORPUSCULAR VOLUME 80.2 fL (80.0-94.0); PLATELET 596 x1000/uL (130-400); RED BLOOD CELL COUNT 3.62 mill/uL (4.7-6.1); RED CELL DISTRIBUTION WIDTH 17.6 % (11.6-14.6); WHITE BLOOD COUNT 11.5 x1000/uL (4.5-11.0)
[2024-02-16 12:00] VITALS: BP 127/64; PULSE 108; RESP 20; TEMP 36.6696; O2SAT 100
[2024-02-16 16:00] VITALS: BP 134/69; PULSE 98; RESP 20; TEMP 38.3364; O2SAT 100
[2024-02-16 20:00] VITALS: BP 123/71; PULSE 92; RESP 18; TEMP 36.50292; O2SAT 95
[2024-02-17] VITALS: BP 119/72; PULSE 80; RESP 18; TEMP 36.05844; O2SAT 96
[2024-02-17 08:00] VITALS: BP 144/74; PULSE 85; RESP 18; TEMP 36.05844; O2SAT 99
[2024-02-17 09:47] LABS: CREATINE KINASE 44 IU/L (46-171)
[2024-02-17] MEDS ORDERED: NALOXONE HCL 0.4MG/ML VIAL IV PRN (10:15)
[2024-02-17 11:30] LABS: CHLORIDE 101 mEq/L (98-107); POTASSIUM 3.5 mEq/L (3.5-5.1); SODIUM 136 mEq/L (136-145)
[2024-02-17 11:31] LABS: CALCIUM 8.2 mg/dL (8.7-10.4); CARBON DIOXIDE 28 mEq/L (21-32)
[2024-02-17 11:36] LABS: CREATININE 0.4 mg/dL (0.6-1.3); GLUCOSE 115 mg/dL (70-105); UREA NITROGEN BLOOD 13 mg/dL (9-23)
[2024-02-17 12:00] VITALS: BP 154/71; PULSE 90; RESP 19; TEMP 36.16956; O2SAT 97
[2024-02-17 16:00] VITALS: BP 164/77; PULSE 99; RESP 19; TEMP 36.33624; O2SAT 97
[2024-02-17] MEDS ORDERED: CEFEPIME 2GM IN DEXT 5% 100ML IV SCH (16:00)
[2024-02-17 16:44] LABS: HEMATOCRIT 22.4 % (42.0-52.0); HEMOGLOBIN 7.2 g/dL (14.0-18.0); MEAN CORPUSCULAR HEMOGLOBIN 26.2 pg (28.0-32.0); MEAN CORPUSCULAR VOLUME 81.8 fL (80.0-94.0); PLATELET 393 x1000/uL (130-400); RED BLOOD CELL COUNT 2.74 mill/uL (4.7-6.1); RED CELL DISTRIBUTION WIDTH 17.1 % (11.6-14.6); WHITE BLOOD COUNT 8.1 x1000/uL (4.5-11.0)
[2024-02-17] MEDS: CEFEPIME 2GM/100ML 100 ML IV SCH (20:45)
[2024-02-18] MEDS: MORPHINE SULFATE 2 MG/ML INJ (NOT FOR IM USE) IV PRN (05:25)
[2024-02-18 07:08] LABS: HEMATOCRIT 29.4 % (42.0-52.0); HEMOGLOBIN 9.2 g/dL (14.0-18.0); MEAN CORPUSCULAR HEMOGLOBIN 25.2 pg (28.0-32.0); MEAN CORPUSCULAR HGB CONC 31.4 g/dL (31.0-37.0); MEAN CORPUSCULAR VOLUME 80.4 fL (80.0-94.0); PLATELET 490 x1000/uL (130-400); RED BLOOD CELL COUNT 3.66 mill/uL (4.7-6.1); RED CELL DISTRIBUTION WIDTH 17.6 % (11.6-14.6); WHITE BLOOD COUNT 11.4 x1000/uL (4.5-11.0)
[2024-02-18 07:33] LABS: CARBON DIOXIDE 31 mEq/L (21-32); CHLORIDE 101 mEq/L (98-107); POTASSIUM 3.5 mEq/L (3.5-5.1); SODIUM 136 mEq/L (136-145)
[2024-02-18 07:35] LABS: CALCIUM 8.5 mg/dL (8.7-10.4)
[2024-02-18 07:39] LABS: CREATININE 0.5 mg/dL (0.6-1.3); GLUCOSE 119 mg/dL (70-105)
[2024-02-18 07:40] LABS: UREA NITROGEN BLOOD 16 mg/dL (9-23)
[2024-02-18 07:42] LABS: PHOSPHORUS 2.8 mg/dL (2.5-4.9)
[2024-02-18 08:00] VITALS: BP 132/65; PULSE 116; RESP 18; TEMP 37.00296; O2SAT 97
[2024-02-18 12:00] VITALS: BP 128/62; PULSE 101; RESP 18; TEMP 36.78072; O2SAT 99
[2024-02-18 16:00] VITALS: BP 136/64; PULSE 103; RESP 19; TEMP 36.28068; O2SAT 99
[2024-02-18 20:00] VITALS: BP 127/66; PULSE 104; RESP 18; TEMP 36.05844; O2SAT 95
[2024-02-19] VITALS: BP 122/69; PULSE 85; RESP 18; TEMP 36.22512; O2SAT 94
[2024-02-19 04:00] VITALS: BP 140/78; PULSE 96; RESP 18; TEMP 36.55848; O2SAT 95
[2024-02-19 08:00] VITALS: BP 100/51; PULSE 115; RESP 19; TEMP 36.61404; O2SAT 93
[2024-02-19 12:00] VITALS: BP 130/68; PULSE 98; RESP 18; TEMP 36.44736; O2SAT 97
[2024-02-19] MEDS: HYDROCODONE/ACETAMINOPHEN 7.5/325MG TABLET PO PRN (13:45)
[2024-02-19] MEDS: CEFEPIME 2GM/100ML 100 ML IV SCH (13:45)
[2024-02-19 16:00] VITALS: BP 99/58; PULSE 85; RESP 20; TEMP 36.61404; O2SAT 99
[2024-02-19 20:00] VITALS: BP 148/76; PULSE 105; RESP 18; TEMP 36.3918; O2SAT 95
[2024-02-20] VITALS: BP 138/69; PULSE 92; RESP 18; TEMP 36.16956; O2SAT 99
[2024-02-20 04:00] VITALS: BP 141/72; PULSE 89; RESP 18; TEMP 36.22512; O2SAT 95
[2024-02-20 12:00] VITALS: BP 140/67; PULSE 91; RESP 18; TEMP 36.22512; O2SAT 97
[2024-02-20 16:00] VITALS: BP 139/71; PULSE 97; RESP 19; TEMP 36.61404; O2SAT 96
[2024-02-20 20:00] VITALS: BP 151/76; PULSE 98; RESP 16; TEMP 36.89184; O2SAT 96
[2024-02-21] VITALS: BP 147/76; PULSE 99; RESP 18; TEMP 36.6696; O2SAT 98
[2024-02-21 04:00] VITALS: BP 140/65; PULSE 80; RESP 18; TEMP 36.6696; O2SAT 98
[2024-02-21 08:00] VITALS: BP 132/66; PULSE 98; RESP 19; TEMP 36.61404; O2SAT 97
[2024-02-21 17:21] VITALS: BP 132/66; PULSE 98; TEMP 97.9; O2SAT 98
[2024-02-21 18:02] VITALS: BP 132/66; PULSE 98; RESP 19
== END 2024-02-21 19:35 | DRG 853 ==
LOC: ER 19:51 → 5EST 01-31 00:39 → 6WST 02-09 03:00
PROVIDERS: ADMIT Internal Medicine; ATTEND Internal Medicine
PROC: 0JB60ZZ Excision of Chest Subcutaneous Tissue and Fascia, Open Approach (ICD-10-PCS; principal; 2024-02-01)
PROC: 0JB70ZZ Excision of Back Subcutaneous Tissue and Fascia, Open Approach (ICD-10-PCS; 2024-02-01)
PROC: 0JB70ZZ Excision of Back Subcutaneous Tissue and Fascia, Open Approach (ICD-10-PCS; 2024-02-05)
PROC: 05HY33Z Insertion of Infusion Device into Upper Vein, Percutaneous Approach (ICD-10-PCS; 2024-02-07)
PROC: B54MZZA Ultrasonography of Right Upper Extremity Veins, Guidance (ICD-10-PCS; 2024-02-07)
PROC: 0JB70ZZ Excision of Back Subcutaneous Tissue and Fascia, Open Approach (ICD-10-PCS; 2024-02-09)
DX: A41.02 Sepsis due to Methicillin resistant Staphylococcus aureus (principal); G82.50 Quadriplegia, unspecified; L89.154 Pressure ulcer of sacral region, stage 4; G93.41 Metabolic encephalopathy; L89.324 Pressure ulcer of left buttock, stage 4; L89.314 Pressure ulcer of right buttock, stage 4; L97.929 Non-pressure chronic ulcer of unspecified part of left lower leg with unspecified severity; I96 Gangrene, not elsewhere classified; I82.722 Chronic embolism and thrombosis of deep veins of left upper extremity; Z59.01 Sheltered homelessness; L03.313 Cellulitis of chest wall; D64.9 Anemia, unspecified; R13.10 Dysphagia, unspecified; E87.6 Hypokalemia; I49.3 Ventricular premature depolarization; L89.890 Pressure ulcer of other site, unstageable; I50.9 Heart failure, unspecified; I11.0 Hypertensive heart disease with heart failure; E86.0 Dehydration; R62.7 Adult failure to thrive; Z74.01 Bed confinement status; Z95.2 Presence of prosthetic heart valve; Z68.33 Body mass index [BMI] 33.0-33.9, adult; Z87.891 Personal history of nicotine dependence; Z89.612 Acquired absence of left leg above knee; Z95.828 Presence of other vascular implants and grafts; Z91.199 Patient's noncompliance with other medical treatment and regimen due to unspecified reason
CPT/HCPCS: 36415; 36573; 71045; 74176; 80048; 80053; 80061; 80076; 80202; 80305; 81003; 82306; 82550; 82607; 82746; 82962; 83036; 83605; 83735; 83880; 84100; 84145; 84439; 84443; 84484; 85025; 85027; 87070; 87077; 87186; 92610; 93005; 93306; 93970; 93971; 94640; 97110; 97161; 97166; 97530; 99285; A6261; C1725; C1893; J0692; J0878; J1171; J1630; J1650; J1885; J2020; J2270; J2405; J2470; J2543; J3370; J3480; J3490; J7030; J7060